=== PATIENT | female | born 1970 | race Caucasian/White ===

== ENCOUNTER 2017-06-20 14:47 | Outpatient (CLI) | payer BC ==
--- NOTE | 2017-06-20 16:15 | MMO ---
BILATERAL DIGITAL SCREENING MAMMOGRAMS: Date: 06/20/17 This patient's mammogram was interpreted with the assistance of computer-aided detection. Baseline exam. FINDINGS: There are scattered fibroglandular densities with benign calcifications. No suspicious masses, calci fications, or architectural distortion are seen. IMPRESSION: BIRADS 2: Benign Finding(s) Annual mammographic screening is recommended. POS: JOAQUÍN
== END 2017-06-20 14:48 | disposition home or self-care (01) ==
LOC: SCSMAMMO 14:47
PROVIDERS: ATTEND Obstetrics & Gynecology
DX: Z12.31 Encounter for screening mammogram for malignant neoplasm of breast (principal)
CPT/HCPCS: 77067; G0202

== ENCOUNTER 2018-11-28 07:10 | Day surgery (SDC) | payer BC ==
[2018-11-27 10:19] VITALS: BMI 53.1
[2018-11-28] MEDS ORDERED: PROPOFOL 200 MG/20 ML VIAL ONE (11:32)
--- NOTE | 2018-11-28 16:10 | OP ---
DATE OF PROCEDURE: 11/28/2018 RN UNIT MANAGER SURGEON: None. PROCEDURE PERFORMED: Colonoscopy, incomplete. INDICATION: A 48-year-old woman presenting for her first colonoscopy, for average risk colon cancer screening. MEDICATIONS: See Anesthesia record. FINDINGS: After discussion of the risks, benefits, and alternatives of the procedure, informed consent was obtained and witnessed. Pre-endoscopic cardiopulmonary examination was satisfactory. Time-out was performed before sedation was achieved. Sedation was achieved with Anesthesia assistance in the endoscopy unit. Digital rectal exam was performed, which was unremarkable. The Pentax adult colonoscope was inserted into the anus and passed forward in the usual fashion. The colon was quite long. There was also significant looping of the scope. Despite repeated attempts at loop reduction and manual pressure as well as changing position to supine position, I was unable to advance the colonoscope all the way to the cecum. I was able to reach what I estimate to be the hepatic flexure. The cecal base was not visualized. The colonoscope was slowly withdrawn in a gradual and circumferential manner with careful examination of the colonic mucosa. The quality of the prep was good. The colonic mucosa appeared completely normal throughout. There were no evidence of any polyps or mass lesions. No diverticula. No mucosal abnormalities. Retroflexion in the rectum was unremarkable. The colonoscope was completely withdrawn and the patient allowed to recover. The patient tolerated the procedure well. There were no immediate postprocedure complications. IMPRESSION: 1. Incomplete colonoscopy, was able to reach the area of the hepatic flexure, but not visualize the cecal base. 2. Normal colonoscopy to the extent examined. RECOMMENDATION: We will arrange for barium enema to complete screening. Job ID: [id number]
== END 2018-11-28 10:33 | disposition home or self-care (01) ==
LOC: SDC 07:10
PROVIDERS: ATTEND Internal Medicine
PROC: 0DJD8ZZ Inspection of Lower Intestinal Tract, Via Natural or Artificial Opening Endoscopic (ICD-10-PCS; principal; 2018-11-28)
DX: Z12.11 Encounter for screening for malignant neoplasm of colon (principal); Z88.5 Allergy status to narcotic agent; Z79.84 Long term (current) use of oral hypoglycemic drugs; Z79.899 Other long term (current) drug therapy
CPT/HCPCS: J2704

== ENCOUNTER 2019-01-09 10:40 | Outpatient (CLI) | payer BC ==
--- NOTE | 2019-01-09 11:50 | MMO ---
Bilateral MAMMO Bilat Screen DDI. CLINICAL HISTORY: Patient is 48 years old and is seen for screening. The patient has no family history of breast cancer. The patient has no personal history of cancer. VIEWS: The views performed were: bilateral craniocaudal and bilateral mediolateral oblique. FILMS COMPARED: The present examination has been compared to a prior imaging study performed at [facility] on 06/20/2017. This study has been interpreted with the assistance of computer-aided detection. MAMMOGRAM FINDINGS: The breasts are almost entirely fat. New nodular density upper mid left breast. Recommend diagnostic left breast exam. In the right breast, there are no suspicious masses, calcifications or areas of architectural distortion. IMPRESSION: FINDING IN THE LEFT BREAST REQUIRES ADDITIONAL EVALUATION. ADDITIONAL IMAGING. ACR BI-RADS Category 0 - Incomplete: Need additional imaging evaluation. [facility] will notify the patient of the need for additional imaging services. MAMMOGRAPHY NOTE: 1. A negative mammogram report should not delay a biopsy if a dominant of clinically suspicious mass is present. 2. Approximately 10% to 15% of breast cancers are not detected by mammography. 3. Adenosis and dense breasts may obscure an underlying neoplasm.
== END 2019-01-09 10:41 | disposition home or self-care (01) ==
LOC: SCSMAMMO 10:40
PROVIDERS: ATTEND Obstetrics & Gynecology
DX: Z12.31 Encounter for screening mammogram for malignant neoplasm of breast (principal)
CPT/HCPCS: 77067

== ENCOUNTER 2019-01-16 12:59 | Outpatient (CLI) | payer BC ==
--- NOTE | 2019-01-16 13:25 | MMO ---
Left Breast MAMMO Unilat Diag DDI LT+REX. CLINICAL HISTORY: Patient is 48 years old and is seen for additional evaluation requested from prior study. The patient has no family history of breast cancer. The patient has no personal history of cancer. VIEWS: The views performed were: left craniocaudal spot compression with tomosynthesis; left mediolateral oblique spot compression with tomosynthesis; and left mediolateral with tomosynthesis. FILMS COMPARED: The present examination has been compared to prior imaging studies performed at [facility] on 06/20/2017 and 01/09/2019, and at [facility] on 01/16/2019. MAMMOGRAM FINDINGS: The breast is almost entirely fat. There is a fat containing, oval mass with circumscribed margins and associated eggshell or rim calcifications seen in the left breast. This is compatible with fat necrosis. There are no suspicious masses, suspicious calcifications, or new areas of architectural distortion. IMPRESSION: THERE IS NO MAMMOGRAPHIC EVIDENCE OF MALIGNANCY. A ROUTINE FOLLOW-UP MAMMOGRAM IN 1 YEAR IS RECOMMENDED. THE RESULTS OF THIS EXAM WERE SENT TO THE PATIENT. ACR BI-RADS Category 2 - Benign finding MAMMOGRAPHY NOTE: 1. A negative mammogram report should not delay a biopsy if a dominant of clinically suspicious mass is present. 2. Approximately 10% to 15% of breast cancers are not detected by mammography. 3. Adenosis and dense breasts may obscure an underlying neoplasm.
== END 2019-01-16 13:00 | disposition home or self-care (01) ==
LOC: BICMAMMO 12:59
PROVIDERS: ATTEND Obstetrics & Gynecology
DX: Z12.31 Encounter for screening mammogram for malignant neoplasm of breast (principal)
CPT/HCPCS: G0279